=== PATIENT | male | born 1990 | race Caucasian/White ===

== ENCOUNTER 2023-04-06 20:57 | Emergency (ER) | payer MEDICAID, SELFPAY ==
[2023-04-06 20:59] VITALS: BP 139/81; PULSE 64; RESP 18; TEMP 37.2; O2SAT 97; BMI 33.4
--- NOTE | 2023-04-06 22:27 | ED.DENTAL ---
HPI - Dental/Oral General Chief complaint: Dental/Oral Stated complaint: tooth pain Time Seen by Provider: 04/06/23 22:03 Source: patient Mode of arrival: ambulatory Limitations: no limitations History of Present Illness HPI Narrative: Patient complaining of left lower molar tooth pain for last few months got worse in last few days patient has a broken tooth and multiple cavities has not seen a dentist no fever no chills pain gets worse with cold liquids Related Data Previous Rx's Medication Instructions Recorded amoxicillin 875 mg-potassium 1 tab PO BID #20 tabs 04/06/23 clavulanate 125 mg tablet hydrocodone 5 mg-acetaminophen 325 1 tab PO Q6H PRN pain #20 tabs 04/06/23 mg tablet Allergies Allergy/AdvReac Type Severity Reaction Status Date / Time No Known Allergies Allergy Verified 04/06/23 21:02 Review of Systems Review of Systems: Yes all other systems are reviewed and are negative [facility] Social History Social History Advance Directives: No Advance Directives Information Provided: No Physical Exam Vital Signs: Vital Signs: Last Vital Signs Temp 98.9 F 04/06/23 20:59 Pulse 64 04/06/23 20:59 Resp 18 04/06/23 20:59 BP 139/81 04/06/23 20:59 Pulse Ox 97 04/06/23 20:59 O2 Del Method Room Air 04/06/23 20:59 BMI result Body Mass Index 33.4 HEENT: Teeth image: 1. Broken tooth , pulp visible tender to touch no abscess or significant soft tissue swelling Medications Administered Discontinued Medications Generic Name Dose Route Start Last Admin Trade Name Alanq PRN Reason Stop Dose Admin Hydrocodone Bitart/Acetaminophen 1 tab 04/06/23 22:27 04/06/23 22:36 Hydrocodone Bit/Acetam 5/325 Tablet PO 04/06/23 22:28 1 tab ONCE ONE Administration Amoxicillin/Clavulanate Potassium 875 mg 04/06/23 22:27 04/06/23 22:36 Amoxicillin/Potassium Clav 875 Mg Tablet PO 04/06/23 22:28 875 mg ONCE ONE Administration Discharge Plan Discharge Clinical Impression: Dental caries Patient Disposition: Home, Self-Care Instructions: Toothache (ED) Additional Instructions: Take antibiotics and pain medication as prescribed Followup with dentist Prescriptions: New amoxicillin-pot clavulanate 875-125 mg tablet 1 tab PO BID Qty: 20 0RF hydrocodone-acetaminophen 5-325 mg tablet 1 tab PO Q6H PRN (Reason: pain) Qty: 20 0RF Rx Instructions: Partial Fill upon patient request. Interventions: ED Discharge Assessment Last Done: 04/06/23 22:38 Discharge Date/Time: 04/06/23 22:38
[2023-04-06] MEDS: HYDROcodone Bit/Acetam 5/325 TABLET 1 TAB PO (22:36)
[2023-04-06] MEDS: Amoxicillin/Potassium Clav 875 MG TABLET PO (22:36)
--- NOTE | 2023-04-06 22:38 | PC.NURSE ---
pt medicated per MAR
== END 2023-04-06 22:38 | disposition home or self-care (01) ==
PROVIDERS: Emergency Provider Internal Medicine
DX: K02.9 Dental caries, unspecified (principal)
CPT/HCPCS: 99283

== ENCOUNTER 2023-06-04 11:01 | Inpatient (IN) | payer MEDICAID, SELFPAY ==
[2023-06-04] VITALS (9 sets, daily range): BP systolic 100–149; BP diastolic 49–112; PULSE 74–94; RESP 12–26; TEMP 35.5–36.6; O2SAT 94–100; BMI 35.3; BMI 36.5
--- NOTE | ~2023-06-04 | XR_ITS ---
EXAMINATION: XR CHEST CLINICAL INFORMATION: Hypoxic with cough COMPARISON: None available. TECHNIQUE: 2 views of the chest were obtained. FINDINGS: Heart size normal. Diffuse airspace disease is present, left greater than right consistent with pneumonia. Process favors the upper lobes compared to the lower lobes which can be best appreciated on the lateral radiograph. No pleural effusions. XR/XR chest 2V IMPRESSION: Bilateral pneumonia, left greater than right.
--- NOTE | 2023-06-04 11:27 | ED.GENADULT ---
HPI - General Adult General Chief complaint: Overdose Stated complaint: OVERDOSE Time Seen by Provider: 06/04/23 11:10 Source: patient, EMS and RN notes reviewed Mode of arrival: EMS Limitations: no limitations History of Present Illness HPI narrative: Patient is a 32-year-old male presenting to the emergency department via EMS after being found unresponsive. Police administered 8mg of Narcan prior to arrival. Patient reports that he has had upper respiratory symptoms for the past several days, states his family members were sick with similar symptoms and he was the last to get sick. Reports using cocaine prior to arrival, states did not knowingly use any opiates. Denies fevers but reports chills. Denies chest pain or palpitations. Reports nausea but denies vomiting, diarrhea, or constipation. Denies abdominal pain. MD complaint: found unreponsive Onset (ago): minute(s) Associated symptoms: cough, nausea/vomiting and shortness of breath Treatments prior to arrival: other (Narcan from PD) Related Data Home Medications Medication Instructions Recorded Confirmed No Known Home Meds 06/04/23 06/04/23 Allergies Allergy/AdvReac Type Severity Reaction Status Date / Time No Known Allergies Allergy Verified 04/06/23 21:02 Review of Systems Review of Systems: As per HPI. Yes all other systems are reviewed and are negative Constitutional: Constitutional: Reports as per HPI [facility] Social History Social History Advance Directives: No Advance Directives Information Provided: No Physical Exam ED Vital Signs: Vital Signs - 24 hr 06/04/23 11:14 06/04/23 13:18 06/04/23 13:34 Temperature 96 F L Pulse Rate 87 79 Respiratory Rate 26 H 18 13 Blood Pressure 149/102 H 100/49 L Pulse Oximetry 94 94 Oxygen Delivery Method Non-Rebreather Mask Oxymask Oxygen Flow Rate 6 06/04/23 14:51 06/04/23 15:29 Temperature 97.7 F Pulse Rate 88 Respiratory Rate 14 15 Blood Pressure 118/78 Pulse Oximetry 97 Oxygen Delivery Method High Flow Nasal Cannula Oxygen Flow Rate BMI result Body Mass Index 35.3 Vital signs have been reviewed and appear to be correct. Blood pressure elevated. Heart rate normal. Respiratory rate tachypneic. Temperature low. Oxygen saturation hypoxic but improves with oxygenl. Const General: cooperative and no acute distress Nutritional Appearance: average body habitus Orientation/consciousness: oriented to person, oriented to place, oriented to time and patient oriented x3 Limitations: no limitations HENMT Head: Yes normocephalic and Yes atraumatic Ears: external ears normal General nose exam: Normal external nose present Face and sinus: Yes face symmetric Mouth: oropharynx normal and moist mucous membranes Throat: Yes uvula midline Eyes Pupils: Equal, round and reactive pupils present Neck Neck: Yes normal visual inspection and Yes supple Chest Chest palpation & inspection: normal inspection of the chest and normal palpation of entire chest wall Resp Effort & Inspection: Actively coughing Quality: wet, tachypneic and uses accessory muscles Auscultation: crackles bilateral throughout Cardio Rate: regular rate Rhythm: regular rhythm Heart sounds: S1 normal heart sound present and S2 normal heart sound present GI Palpation (GI): Soft to palpation and nontender Auscultation: normoactive bowel sounds General: Yes no CVA tenderness Back/Spine/Pelvis Back: no CVA tenderness Skin General skin exam: elasticity normal and turgor normal Neuro General: oriented to person, oriented to place, oriented to time, patient oriented x3, moves all extremities, no focal motor deficits and CN's II-XI intact bilaterally Cranial nerves: Yes Equal, round and reactive pupils present Cognition (Neuro): normal cognition Extrem General: Yes full ROM, Yes no pedal edema and Yes no calf tenderness Psych Mental Status: mental status grossly normal Affect: normal affect Thought process: Normal thought process present Medications Administered Discontinued Medications Generic Name Dose Route Start Last Admin Trade Name Freq PRN Reason Stop Dose Admin Piperacillin Sod/Tazobactam 50 mls @ 100 mls/hr 06/04/23 12:00 06/04/23 14:49 Sod 3.375 gm/ Sodium Chloride IV 06/04/23 12:29 100 mls/hr ONCE ONE Administration Sodium Chloride 2,886 mls @ 2,886 mls/hr 06/04/23 13:24 06/04/23 14:56 Ns 30 ml/kg infuse over 1 hr (2886 ml) 06/04/23 14:23 Infused IV Infusion .Q1H STA Ondansetron HCl 4 mg 06/04/23 11:40 06/04/23 11:44 Ondansetron Hcl 4 Mg/2 Ml Vial IVPUSH 06/04/23 11:41 4 mg ONCE ONE Administration Medical Decision Making Medical Decision Making [facility] Narrative: 11:20 Patient is a 32-year-old male presenting to the emergency department via EMS after being found unresponsive. On exam patient is awake, A+Ox3, afebrile, hypoxic on room air, mildly tachypneic, BP elevated, normal neurological exam without focal deficits, physical exam findings as above. Given reported symptoms and physical exam findings, initial differential includes opioid overdose, pneumonia, flu, COVID. Do not suspect sepsis at this time. Will obtain chest x-ray. 12:00 Chest x-ray positive for bilateral pneumonia, my interpretation is in agreement with the radiologist's interpretation. IV zosyn ordered. RT called to bedside as patient hypoxic on nasal cannula. Patient placed on oxymask by RT. Labs notable for leukocytosis, elevated LFTs. Flu and COVID swab negative. 1:24 Received call from labs for bands of 18. 30mg/kg fluids ordered. Cultures and lactic ordered as Zosyn not yet administered. [place] text to Dr. Malik for admission. Differential Diagnosis Differential Diagnoses: The differential diagnosis associated with the presentation includes As per MDM. Admission/Observation Consideration of admission/observation: Escalation of care including admission/observation considered Consult Healthcare Provider Management of the patient was discussed with: Hospitalist Lab Data [facility] Lab Attestation statement: I reviewed the patient's lab results. As per MDM. 06/04/23 12:34 06/04/23 12:34 Labs: Lab Results 06/04/23 06/04/23 06/04/23 Range/Units 11:43 12:34 13:07 WBC 21.6 H (4.8-10.8) X10*3/uL RBC 4.86 (4.60-5.80) X10*6/uL Hgb 14.9 (14.0-18.0) g/dl Hct 46.3 (42.0-52.0) % MCV 95.3 (80.0-98.0) fL MCH 30.7 (27.0-33.0) pg MCHC 32.2 (31.0-36.0) g/dl RDW 13.2 (11.0-16.0) % Plt Count 395 (160-400) X10*3/uL MPV 10.9 (9.4-12.4) fL Immature Gran % (Auto) Cancelled Neut % (Auto) Cancelled Lymph % (Auto) Cancelled [place] % (Auto) Cancelled Eos % (Auto) Cancelled Baso % (Auto) Cancelled Lymph # (Auto) Cancelled [place] # (Auto) Cancelled Eos # (Auto) Cancelled Baso # (Auto) Cancelled Abs Immat Gran (auto) Cancelled Absolute Neuts (auto) Cancelled Absolute Nucleated RBC 0.000 (0.0-0.012) X10*3/uL Nucleated RBC % (auto) 0.0 (0.0-0.2) /100WBC Neutrophils % (Manual) 57 (45-73) % Band Neutrophils % 18 H (3-5) % Lymphocytes % (Manual) 15 L (20-40) % Metamyelocytes % 4 % Myelocytes % 6 % Abs Neuts (Manual) 16.2 H (2.0-8.3) X10*3/uL Lymphocytes # (Manual) 3.2 (1.2-4.9) X10*3/uL Metamyelocytes # 0.9 X10*3/uL Myelocytes # 1.3 X10*/uL Toxic Vacuolation PRESENT Platelet Estimate NORMAL (NORMAL) Plt Morphology Comment NORMAL RBC Morphology NOTED [place] Cells 3+ (>5) /OIF Acanthocytes (Spur) 1+ (0-2) /OIF Sodium 135 (135-145) mmol/L Potassium 4.3 (3.3-5.1) mmol/L Chloride 100 (96-108) mmol/L Carbon Dioxide 17 L (22-29) mmol/L Anion Gap 22 H (12-20) BUN 14 (9-16) mg/dL Creatinine 1.50 H (0.5-1.4) mg/dL Estim Creat Clear Calc 74.6 Estimated GFR 54 Random Glucose 188 H (60-115) mg/dL Lactic Acid 5.4 H* (0.5-2.0) mmol/L Calcium 9.5 (8.4-10.2) mg/dL Total Bilirubin 0.3 (0.0-1.0) mg/dL AST 107 H (5-37) U/L ALT 86 H (0-40) U/L Alkaline Phosphatase 84 (39-117) U/L Total Protein 8.7 H (6.5-8.0) g/dL Albumin 4.7 (3.5-5.0) g/dL COVID-19 (DAILY) Negative (Negative) COVID-19 Clin Com See Note Influenza Type A ([place]) Negative (Negative) Influenza Type B ([place]) Negative (Negative) Influenza A & B Note See Note Independent Interpretation I performed an independent interpretation of an: Plain X-Ray Interpretation: Bilateral pneumonia Radiology Impression Discussion of test interpretation with radiology: I have reviewed the radiologist's reading. Radiologist Impression: XR/XR chest 2V IMPRESSION: Bilateral pneumonia, left greater than right. External Record Review External record reviewed: Inpatient record, Office record and Outpatient record Prescription Management I considered prescription management with: Antibiotic Discharge Plan Discharge Clinical Impression: Bilateral pneumonia Patient Disposition: Admitted As Inpatient
[2023-06-04] MEDS: ondansetron HCL 4 MG/2 ML VIAL IVPUSH (11:44)
--- NOTE | 2023-06-04 11:45 | PC.NURSE ---
patient removed non-rebreather d/t vomiting. oxygen dropped to 70's. medicated with zofran, placed back on non-rebreather at this time 94%.
[2023-06-04 12:07] LABS: IDNOW Serial# 9DB6401D; Influenza A Negative (Negative); Influenza B2 Negative (Negative)
[2023-06-04 12:08] LABS: COVID-19 Test Negative (Negative); IDNOW Serial# BCCEAD1C
[2023-06-04 12:43] LABS: Hematocrit 46.3 % (42.0-52.0); Hemoglobin 14.9 g/dl (14.0-18.0); Mean Corpuscular HGB Conc 32.2 g/dl (31.0-36.0); Mean Corpuscular Hemoglobin 30.7 pg (27.0-33.0); Mean Corpuscular Volume 95.3 fL (80.0-98.0); Mean Platelet Volume 10.9 fL (9.4-12.4); Platelet Count 395 X10*3/uL (160-400); Red Blood Count 4.86 X10*6/uL (4.60-5.80); Red Cell Distribution Width 13.2 % (11.0-16.0)
[2023-06-04 12:46] LABS: WBC ABN SCTR FOR CBC 1; White Blood Count 21.6 X10*3/uL (4.8-10.8)
--- NOTE | 2023-06-04 12:49 | HO.SUDE ---
Met with pt in ED6 who is here for OD to complete SUDE. Pt reports taking a small amount of cocaine nasally this morning before he went unconscious, stating he usually uses cocaine nasally a few times a week but that he does not have a history of opiates or any other recovery involvement. Pt informs he does not need any assistance with recovery and is being admitted. T/W reviewed harm reduction and overdose prevention with pt verbalizing understanding and having no other questions or concerns at this time.
[2023-06-04 12:58] LABS: Alanine Aminotransferase 86 U/L (0-40); Albumin Level 4.7 g/dL (3.5-5.0); Alkaline Phosphatase 84 U/L (39-117); Anion Gap 22 (12-20); Aspartate Amino Transferase 107 U/L (5-37); Bilirubin Total 0.3 mg/dL (0.0-1.0); Blood Urea Nitrogen 14 mg/dL (9-16); Calcium 9.5 mg/dL (8.4-10.2); Carbon Dioxide 17 mmol/L (22-29); Chloride 100 mmol/L (96-108); Creatinine Clr Calc Pharmacy 74.6; Estimated Glomerular Filt Rate 54; Glucose Random 188 mg/dL (60-115); Potassium 4.3 mmol/L (3.3-5.1); Sodium 135 mmol/L (135-145); Total Protein 8.7 g/dL (6.5-8.0)
[2023-06-04 13:20] LABS: Neutrophils Percent Manual 57 % (45-73)
[2023-06-04 13:22] LABS: Band Neutrophils Percent 18 % (3-5); Lymphocytes Absolute Manual 3.2 X10*3/uL (1.2-4.9); Lymphocytes Percent Manual 15 % (20-40); Metamyelocytes Absolute 0.9 X10*3/uL; Metamyelocytes Percent 4 %; Myelocytes Absolute 1.3 X10*/uL; Myelocytes Percent 6 %; Neutrophils Absolute Manual 16.2 X10*3/uL (2.0-8.3); RBC Morphology NOTED
[2023-06-04 13:23] LABS: Acanthocytes 1+ (0-2) /OIF; Burr Cells 3+ (>5) /OIF; Platelet Estimate NORMAL (NORMAL); Platelet Morphology Comment NORMAL; Toxic Vacuolation PRESENT
[2023-06-04] MEDS: SODIUM CHLORIDE 2886 ML IV (13:40)
--- NOTE | 2023-06-04 14:08 | PHA.MEDREC ---
Pharmacy Consult ? Medication Reconciliation Pharmacy has completed the medication reconciliation. pt claims he is not on any home medications
[2023-06-04 14:14] LABS: Lactic Acid 5.4 mmol/L (0.5-2.0)
[2023-06-04] MEDS: Piperacillin Sodium/Tazobactam 3.375 GM in 0.9 % Sodium Chloride 50 ML IV ×2 (14:49→21:25)
--- NOTE | 2023-06-04 15:00 | P.HPHOSP_ITS ---
History of Present Illness Date of Service: 06/04/23 Attending physician on admission: Paul Malik Chief Complaint: Cough, fatigue Pt is a 32-year-old male with a PMH significant for?cocaine use disorder not on home meds who presents to the ED after being found unresponsive at his mother's house. Patient states that he has been feeling depressed and overwhelmed lately as he is currently without a job and involved with a custody dispute with the maternal grandparents of his child, and been using cocaine 1-2 times per week. Today snorted cocaine and then passed out. Patient adamantly denies overdose was intentional, denies SI. Patient unclear of specifics of events surrounding ingestion. Police administered 8 mg of Narcan prior to arrival to the ED with good response. Patient denies IVDU or any significant history of heroin use, denies knowingly ingesting any heroin today. Patient also reports he has been experiencing URI-type symptoms for the past week: Sore throat, nasal congestion, hoarse voice, chills, and difficulty breathing. Denies any significant cough. No chest pain/pressure, palpitation. Had some nausea after arriving at the ED, but has since resolved. No vomiting. Denies abdominal pain. No headache, acute vision changes. In the ED the patient was afebrile, tachypneic to 26, with variable BP, satting at 94% on non-rebreather on on 15 L. In the ED pt was initially transitioned to OxyMask 8 L, then switched to 40% high-flow due to continued hypoxia. Labs were significant for leukocytosis of 21.6, bands 18%, creatinine 1.50, lactic acid 5.4, AST 107, ALT 86. Patient tested negative for COVID and influenza type a and B. CXR showed bilateral pneumonia with left greater than right. Pt was treated with ondansetron, IVF, and Zosyn. Pt will be admitted to the hospital for treatment and further evaluation of acute hypoxic respiratory failure in the setting of sepsis secondary to multifocal pneumonia. Review of Systems 2 Review of Systems: SOB, dyspnea Nasal congestion, hoarse voice, sore throat Nausea, Chills Denies chest pain/pressure, palpitations No abdominal pain PMFSH Social History Household Members: Family Housing: House Do you presently have visiting nurse or other home services: No Patient Tobacco Use Status: Current everyday Tobacco user Tobacco use type: Cigarette Smoked in Last 30 Days: Yes Patient Interested in Nicotine Replacement: Yes Patient Given Instructions on How to Stop Smoking: Yes Date Education Initiated: 06/04/23 Second Hand Smoke Exposure: Yes Use of substances other than those prescribed or required for medical reasons: Yes Substance Use Type: Crack/Cocaine Substance Use Frequency: Daily Last Used Substance: Just Prior to Admission Currently Displaying Signs/Symptoms of Drug Intoxication Withdrawal: No Any prior treatment program specific to substance use: No Have you been hit, kicked, punched, or otherwise hurt by someone within the past year? If so, by whom?: No Is there a partner from a previous relationship who is making you feel unsafe now?: No Are you made to feel afraid or neglected: No Advance Directives: No Advance Directives Information Provided: No Do you have thoughts of harming others: None Do you have a plan to hurt others: No Plan Recently lost weight without trying: Unsure Eating poorly because of decreased appetite: No service: No Meds Allergies Allergy/AdvReac Type Severity Reaction Status Date / Time No Known Allergies Allergy Verified 04/06/23 21:02 Home Medications Medication Instructions Recorded Confirmed Last Taken Type No Known Home Meds 06/04/23 06/04/23 Unknown History Physical Exam 2 Vital Signs and Narrative: Vital Signs: Last Vital Signs Temp 97.7 F 06/04/23 14:51 Pulse 88 06/04/23 14:51 Resp 14 06/04/23 14:51 BP 118/78 06/04/23 14:51 Pulse Ox 97 06/04/23 14:51 O2 Del Method High Flow Nasal C annula 06/04/23 14:51 O2 Flow Rate 6 06/04/23 13:18 Oxygen Flow Rate 15 06/04/23 11:14 BMI result Body Mass Index 35.3 General: AOx3, no acute distress Resp: CTA bilaterally, diminished at bases CVS: S1, S2, RRR GI: +BS, NT, no distention Skin: No rash Neuro: Cranial nerves II-XII grossly intact bilaterally. Motor grossly intact bilaterally Extremities: No edema Psych: Appropriate affect Results Labs 06/05/23 05:47 06/05/23 05:47 Labs: Laboratory Results - last 24 hr 06/04/23 06/04/23 06/04/23 11:43 12:34 13:07 MCV 95.3 MCH 30.7 MCHC 32.2 RDW 13.2 Plt Count 395 MPV 10.9 Immature Gran % (Auto) Cancelled Neut % (Auto) Cancelled Lymph % (Auto) Cancelled [place] % (Auto) Cancelled Eos % (Auto) Cancelled Baso % (Auto) Cancelled Lymph # (Auto) Cancelled [place] # (Auto) Cancelled Eos # (Auto) Cancelled Baso # (Auto) Cancelled Abs Immat Gran (auto) Cancelled Absolute Neuts (auto) Cancelled Absolute Nucleated RBC 0.000 Nucleated RBC % (auto) 0.0 Neutrophils % (Manual) 57 Band Neutrophils % 18 H Lymphocytes % (Manual) 15 L Metamyelocytes % 4 Myelocytes % 6 Abs Neuts (Manual) 16.2 H Lymphocytes # (Manual) 3.2 Metamyelocytes # 0.9 Myelocytes # 1.3 Toxic Vacuolation PRESENT Platelet Estimate NORMAL Plt Morphology Comment NORMAL RBC Morphology NOTED [place] Cells 3+ (>5) Acanthocytes (Spur) 1+ (0-2) Anion Gap 22 H Estim Creat Clear Calc 74.6 Estimated GFR 54 Random Glucose 188 H Lactic Acid 5.4 H* Calcium 9.5 Total Bilirubin 0.3 AST 107 H ALT 86 H Alkaline Phosphatase 84 Total Protein 8.7 H Albumin 4.7 COVID-19 (DAILY) Negative COVID-19 Clin Com See Note Influenza Type A ([place]) Negative Influenza Type B ([place]) Negative Influenza A & B Note See Note Imaging Radiologist's Impressions: Impressions Chest X-Ray 06/04/23 11:31 IMPRESSION: Bilateral pneumonia, left greater than right. Assessment and Plan (1) Bilateral pneumonia: Status: Acute Plan Pt is a 32-year-old male with a PMH significant for?cocaine use disorder not on home meds who presents to the ED after being found unresponsive at his mother's house. Patient states that he has been feeling depressed and overwhelmed lately as he is currently without a job and involved with a custody dispute with the maternal grandparents of his child, and been using cocaine 1-2 times per week. Today snorted cocaine and then passed out. Acute hypoxic respiratory in the setting of sepsis secondary to likely aspiration pneumonia Patient hypoxic in low 80s after being found unresponsive after snorting cocaine possibly laced with fentanyl/opioids Patient was given 8 mg Narcan by police to good effect Patient initially on non-rebreather then transitioned to OxyMask and then to high-flow CXR showing bilateral pneumonia with left greater than right Pt with URI-like symptoms x1 week Aspiration pneumonia versus community-acquired pneumonia Patient meets severe sepsis criteria: Pneumonia, tachypnea, leukocytosis, lactic acid 5.4 Patient received IVF sepsis bolus and started on broad-spectrum antibiotics in the ED Treat with Zosyn 3.375g q6, started 06/04/2023 Will also treat with Solu-Medrol for possible aspiration pneumonitis Titrate supplemental O2>92, wean as tolerated Aspiration precautions Follow blood cultures Monitor respiratory status Cocaine use disorder Addiction medicine consult Check tox screen [id number] Patient creatinine 1.50, baseline unknown Patient received IVF in the ED Follow BMP Lactic acidosis, resolved Lactic acid 5.4 time of presentation with repeat WNL at 1.3 after receiving fluids Nicotine dependence Current smoker of 1/2 pack daily NRT: patch Full Code Attending:?Dr. Malik DVT Prophylaxis: Lovenox Pt will require a hospitalization of at least two nights for treatment of?acute hypoxic respiratory failure in the setting of sepsis secondary to likely aspiration pneumonia. The patient be treated with IVF, IV antibiotics, and close monitoring. Quality Stroke Does the patient have a stroke diagnosis?: No VTE Prior VTE?: No VTE Risk Level:: Medical - moderate - high VTE Device Contraindication: Treatment Not Indicated VTE Drug Contraindication: N/A - Med Ordered
[2023-06-04 15:34] LABS: Reflex Lactate? Lactic Acid Added
--- NOTE | 2023-06-04 15:58 | PC.NURSE ---
delay in hanging antibiotics d/t complications with second set of blood cultures. okayed to hang antibiotics after first set
[2023-06-04 16:13] LABS: ~Lactic Acid-LAB USE ONLY 1.3 mmol/L (0.5-2.0)
[2023-06-04] MEDS: methylPREDNISolone Sod Succ 40 MG/ML VIAL IVPUSH (16:28)
[2023-06-04] MEDS: 0.9 % Sodium Chloride Flush 3 ML SYRINGE IVFLUSH ×2 (16:30→21:29)
[2023-06-04] MEDS: Enoxaparin Sodium 40 MG/0.4 ML SYRINGE SUBCUT (16:30)
--- NOTE | 2023-06-04 18:13 | PC.NURSE ---
patient remains on the high flow, resting quietly in room. awaiting new bed assignment to [facility]. eating dinner at this time
[2023-06-04 22:32] LABS: Amphetamine Screen Urine Not Detected (Not Detect); Barbiturates, Urine Not Detected (Not Detect); Benzodiazepines Screen Urine Not Detected (Not Detect); Cannabinoid Screen Urine POSITIVE (Not Detect); Cocaine Screen Urine POSITIVE (Not Detect); Fentanyl, urine POSITIVE (Not Detect); Opiate Screen Urine Not Detected (Not Detect); Phencyclidine Screen Urine POSITIVE (Not Detect)
[2023-06-05] VITALS (7 sets, daily range): BP systolic 109–129; BP diastolic 65–71; PULSE 78–88; RESP 18–20; TEMP 36.2–36.8; O2SAT 92–98
[2023-06-05] MEDS: methylPREDNISolone Sod Succ 40 MG/ML VIAL IVPUSH ×2 (03:09→16:14)
[2023-06-05] MEDS: Piperacillin Sodium/Tazobactam 3.375 GM in 0.9 % Sodium Chloride 50 ML IV ×2 (03:12→08:36)
[2023-06-05 06:49] LABS: Hematocrit 36.9 % (42.0-52.0); Hemoglobin 12.1 g/dl (14.0-18.0); Mean Corpuscular HGB Conc 32.8 g/dl (31.0-36.0); Mean Corpuscular Hemoglobin 30.6 pg (27.0-33.0); Mean Corpuscular Volume 93.2 fL (80.0-98.0); Mean Platelet Volume 11.9 fL (9.4-12.4); Platelet Count 336 X10*3/uL (160-400); Red Blood Count 3.96 X10*6/uL (4.60-5.80); Red Cell Distribution Width 13.3 % (11.0-16.0); White Blood Count 29.1 X10*3/uL (4.8-10.8)
[2023-06-05 06:57] LABS: Anion Gap 15 (12-20); Blood Urea Nitrogen 29 mg/dL (9-16); Calcium 8.2 mg/dL (8.4-10.2); Carbon Dioxide 23 mmol/L (22-29); Chloride 100 mmol/L (96-108); Creatinine Clr Calc Pharmacy 58.7; Estimated Glomerular Filt Rate 40; Glucose Random 128 mg/dL (60-115); Potassium 4.7 mmol/L (3.3-5.1); Sodium 133 mmol/L (135-145)
[2023-06-05 08:01] LABS: Magnesium 2.1 mg/dL (1.6-2.6); Phosphorus 3.5 mg/dL (2.7-4.5)
--- NOTE | 2023-06-05 08:25 | P.CONNP_ITS ---
History of Present Illness Reason for Consult Consult date: 06/05/23 Reason for consult: YUSUF Chief Complaint Chief complaint: Sepsis,hypoxia,d/t bilateral pneumonia History of Present Illness Narrative: Pt is a 32-year-old male with a h/o cocaine use disorder not on home meds who presents to the ED after being found unresponsive at his mother's house. Patient states that he has been feeling depressed and overwhelmed lately as he is currently without a job and involved with a custody dispute with the maternal grandparents of his child, and been using cocaine 1-2 times per week. Prior to admission,he snorted cocaine and then passed out. Patient adamantly denies overdose was intentional, denies SI. Patient unclear of specifics of events surrounding ingestion. Does not remeber how long he was on the floor.Police administered 8 mg of Narcan prior to arrival to the ED with good response. Patient denies IVDU or any significant history of heroin use, denies knowingly ingesting any heroin today. On admission, he had YUSUF. CPK was not available and I ordered earlier today , whic was only 333 Review of Systems Constitutional: Denies anorexia, Denies fever(s) and Denies weakness Eyes: Denies blurry vision Cardiovascular: Denies no additional cardiovascular complaints and Denies dyspnea Respiratory: Reports no additional respiratory complaints, Reports cough and Denies dyspnea Gastrointestinal: Denies melena and Denies diarrhea Genitourinary: Denies hematuria Musculoskeletal: Denies tingling Skin/Breast: Denies rash Reports Abnormal speech present, Denies focal weakness, Denies tingling, Denies tremor(s) and Denies weakness [facility] Social History Social History Household Members: Family Housing: House Do you presently have visiting nurse or other home services: No Patient Tobacco Use Status: Current everyday Tobacco user Tobacco use type: Cigarette Second Hand Smoke Exposure: Yes Substance Use Type: Crack/Cocaine service: No Meds Allergies Allergy/AdvReac Type Severity Reaction Status Date / Time No Known Allergies Allergy Verified 04/06/23 21:02 Active Medications: Current Medications Acetaminophen (Acetaminophen 325 Mg Tablet) 650 mg PO Q6H PRN PRN Reason: Pain, Mild (Pain Scale 1-3) Benzonatate (Benzonatate 100 Mg Capsule) 100 mg PO TID PRN PRN Reason: Cough Docusate Sodium (Docusate Sodium 100 Mg Capsule) 100 mg PO DAILY PRN PRN Reason: Constipation Enoxaparin Sodium (Enoxaparin Sodium 40 Mg/0.4 Ml Syringe) 30 mg SUBCUT Q24H [facility] Piperacillin Sod/Tazobactam (Sod 3.375 gm/ Sodium Chloride) 50 mls @ 100 mls/hr IV Q6H [facility] Last Infusion: 06/05/23 03:42 Dose: Infused Sodium Chloride (Ns) 1,000 mls @ 125 mls/hr IVCONT .Q8H [facility] Melatonin (Melatonin 3 Mg Tablet) 6 mg PO BEDTIME PRN PRN Reason: Insomnia Methylprednisolone Sodium Succinate (Methylprednisolone Sod Succ 40 Mg/Ml Vial) 40 mg IVPUSH Q12H [facility] Last Admin: 06/05/23 03:09 Dose: 40 mg Nicotine (Nicotine 14 Mg Patch.Td24) 14 mg TRANSDERMA DAILY [facility] Last Admin: 06/04/23 18:12 Dose: Not Given Ondansetron HCl (Ondansetron Hcl 4 Mg/2 Ml Vial) 4 mg IVPUSH Q8H PRN PRN Reason: Nausea and Vomiting Sodium Chloride (0.9 % Sodium Chloride Flush 3 Ml Syringe) 3 ml IVFLUSH QSHIFT [facility] Last Admin: 06/04/23 21:29 Dose: 3 ml Home Medications Medication Instructions Recorded Confirmed Last Taken Type No Known Home Meds 06/04/23 06/04/23 Unknown History Physical Exam Vital Signs: Last Vital Signs Temp 97.1 F 06/05/23 03:40 Pulse 88 06/05/23 03:40 Resp 20 06/05/23 04:14 BP 129/67 06/05/23 03:40 Pulse Ox 95 06/05/23 03:40 O2 Del Method High Flow Nasal Cannula 06/05/23 03:40 O2 Flow Rate 40 06/05/23 03:40 FiO2 30 06/05/23 03:40 Oxygen Flow Rate 15 06/04/23 11:14 BMI result Body Mass Index 36.5 Const General: comfortable; No acute distress Orientation/consciousness: patient oriented x3 Eyes General: appearance normal, both eyes and all related structures Visual Johnson: normal visual johnson by confrontation Neck Neck: Yes supple and Yes no JVD Resp Effort & Inspection: normal respiratory effort and respiratory effort not decreased Auscultation: rhonchi Cardio Palpation: no palpable S3 and no palpable S4 Heart sounds: no rubs GI Inspection: Yes normal to inspection Palpation (GI): Soft to palpation Percussion: Yes normal to percussion Auscultation: normal bowel sounds General: Yes no CVA tenderness Back/Spine/Pelvis Back: no CVA tenderness Skin General skin exam: no petechiae and no purpura Neuro General: patient oriented x3 and no focal motor deficits Speech: Abnormal speech present Extrem General: No clubbing and No edema Results Lab Results 06/05/23 05:47 06/05/23 05:47 Lab results: Chemistry 06/04/23 06/05/23 12:34 05:47 Sodium 135 133 L Potassium 4.3 4.7 Carbon Dioxide 17 L 23 BUN 14 29 H Creatinine 1.50 H 1.94 H Calcium 9.5 8.2 L D Phosphorus 3.5 Hematology 06/04/23 06/05/23 12:34 05:47 WBC 21.6 H 29.1 H Hgb 14.9 12.1 L Plt Count 395 336 Assessment and Plan (1) YUSUF (acute kidney injury): Status: Acute Plan YUSUF in a young man in a setting of drug abuse/Cocaine use DDX Probably has ATN AIN is a possibility GN needs to be ruled out. Obstruction is less likely based on clinical picture Other problems: Mild Hyponatremia Lactic acidosis Mild hypocalcemia Elevated total protein Anemia Suggest Check UA, Urine Pro: Cr Keep I > O IV Hydration with NS or LR Watch urine output Avoid nephrotoxins Repeat Chem 7( ordered) Follow creatinine; If not improvement, would obtain sonogram If he has significant proteinuria, I willproceed with further work up Procedures Date of Service Date of Service: 06/05/23
[2023-06-05] MEDS: 0.9 % Sodium Chloride 1,000 ML 125 ML IVCONT ×3 (08:31→19:36)
[2023-06-05] MEDS: 0.9 % Sodium Chloride Flush 3 ML SYRINGE IVFLUSH ×2 (08:35→16:14)
[2023-06-05] MEDS: Enoxaparin Sodium 40 MG/0.4 ML SYRINGE 30 MG SUBCUT (08:39)
[2023-06-05] MEDS: Nicotine 14 MG PATCH.TD24 TRANSDERMA (08:39)
--- NOTE | 2023-06-05 10:45 | MHC.CM.PN ---
PT REPORTS HE LIVES WITH HIS MOTHER, STEP-FATHER, LITTLE SISTER AND TWO NEPHEWS HE REPORTS BEING INDEPENDENT WITH CARE, HAVING NO DME AND NO SERVICES PT REPORTS HE DOES NOT HAVE A PCP, HE WAS EDUCATION ON THE PROCESS BASED ON HIS INSURANCE LIST OF LOCAL PCP'S ALSO PROVIDED PT DECLINES TO COMPLETE A HCP DCP: HOME NO SERVICES VIA FAMILY TRANSPORT
[2023-06-05] MEDS: Azithromycin 500 MG in 0.9 % Sodium Chloride 250 ML 125 MG IV (10:51)
[2023-06-05] MEDS: cefTRIAXone sodium 1 GM in 0.9 % Sodium Chloride 50 ML IV (10:52)
[2023-06-05 11:03] LABS: Creatinine Urine 72.59 mg/dL; Total Protein Urine Random 15 mg/dL (<12)
--- NOTE | 2023-06-05 11:27 | MHC.RECOVSUP ---
Addendum entered by Jeff Villagomez 06/05/23 17:00: followed up with pt and provided recovery resources and fentanyl test strips. Pt had no other questions or concerns at this time. Original Note: Met with pt in 486 to see how he is doing. Pt informs he is feeling good and is not feeling any withdrawals at this time aside from being a little itchy and some heartburn. Pt has no questions or concerns at this time.
[2023-06-05 11:41] LABS: EOS Counted 0 CELLS; EOS QC POS YES; EOS Stain Quality OK YES; WBC, Counted 100 CELLS
--- NOTE | 2023-06-05 12:40 | P.PNIM_ITS ---
Subjective Subjective Date of Service: 06/05/23 Interval History: feels slightly better weaning down O2 no fever or chills Cr increasing Review of Systems Review of Systems: Yes all other systems are reviewed and are negative Physical Exam 2 Vital Signs: Vital Signs: Last Vital Signs Temp 98.3 F 06/05/23 12:00 Pulse 88 06/05/23 12:00 Resp 20 06/05/23 12:00 BP 127/69 06/05/23 12:00 Pulse Ox 94 06/05/23 12:00 O2 Del Method Nasal Cannula 06/05/23 12:00 O2 Flow Rate 4 06/05/23 12:00 FiO2 30 06/05/23 03:40 Oxygen Flow Rate 15 06/04/23 11:14 BMI result Body Mass Index 36.5 Const: Other: Constitutional : Awake, interactive, not in distress Neck : Normal inspection, Supple Cardiovascular : RRR, no JVP, no lower extremity edema Respiratory : good bilateral air entry, basal fine crackles, scattered expiratory wheezes Gastrointestinal: soft, lax, Normal bowel sounds, Non tender Skin : Warm, Dry Neurological : Alert & oriented x3, No focal deficit Objective Data Active Medications Acetaminophen (Acetaminophen 325 Mg Tablet) 650 mg PO Q6H PRN PRN Reason: Pain, Mild (Pain Scale 1-3) Benzonatate (Benzonatate 100 Mg Capsule) 100 mg PO TID PRN PRN Reason: Cough Docusate Sodium (Docusate Sodium 100 Mg Capsule) 100 mg PO DAILY PRN PRN Reason: Constipation Enoxaparin Sodium (Enoxaparin Sodium 40 Mg/0.4 Ml Syringe) 30 mg SUBCUT Q24H [facility] Last Admin: 06/05/23 08:39 Dose: 30 mg Documented By: ALEXYS Sodium Chloride (Ns) 1,000 mls @ 125 mls/hr IVCONT .Q8H [facility] Last Admin: 06/05/23 08:31 Dose: 125 mls/hr Documented By: ALEXYS Ceftriaxone Sodium 1 gm/ (Sodium Chloride) 50 mls @ 100 mls/hr IV Q24H [facility] Last Infusion: 06/05/23 11:39 Dose: Infused Documented By: ALEXYS Azithromycin 500 mg/ Sodium (Chloride) 250 mls @ 125 mls/hr IV Q24H [facility] Last Admin: 06/05/23 10:51 Dose: 125 mls/hr Documented By: ALEXYS Melatonin (Melatonin 3 Mg Tablet) 6 mg PO BEDTIME PRN PRN Reason: Insomnia Methylprednisolone Sodium Succinate (Methylprednisolone Sod Succ 40 Mg/Ml Vial) 40 mg IVPUSH Q12H [facility] Last Admin: 06/05/23 03:09 Dose: 40 mg Documented By: ERIK Nicotine (Nicotine 14 Mg Patch.Td24) 14 mg TRANSDERMA DAILY [facility] Last Admin: 06/05/23 08:39 Dose: 14 mg Documented By: ALEXYS Ondansetron HCl (Ondansetron Hcl 4 Mg/2 Ml Vial) 4 mg IVPUSH Q8H PRN PRN Reason: Nausea and Vomiting Sodium Chloride (0.9 % Sodium Chloride Flush 3 Ml Syringe) 3 ml IVFLUSH QSHIFT [facility] Last Admin: 06/05/23 08:35 Dose: 3 ml Documented By: ALEXYS Labs 06/05/23 05:47 06/05/23 05:47 Labs: Laboratory Results - last 24 hr 06/04/23 06/04/23 06/04/23 12:34 13:07 15:52 MCV 95.3 MCH 30.7 MCHC 32.2 RDW 13.2 Plt Count 395 MPV 10.9 Immature Gran % (Auto) Cancelled Neut % (Auto) Cancelled Lymph % (Auto) Cancelled Turner % (Auto) Cancelled Eos % (Auto) Cancelled Baso % (Auto) Cancelled Lymph # (Auto) Cancelled Turner # (Auto) Cancelled Eos # (Auto) Cancelled Baso # (Auto) Cancelled Abs Immat Gran (auto) Cancelled Absolute Neuts (auto) Cancelled Absolute Nucleated RBC 0.000 Nucleated RBC % (auto) 0.0 Neutrophils % (Manual) 57 Band Neutrophils % 18 H Lymphocytes % (Manual) 15 L Metamyelocytes % 4 Myelocytes % 6 Abs Neuts (Manual) 16.2 H Lymphocytes # (Manual) 3.2 Metamyelocytes # 0.9 Myelocytes # 1.3 Toxic Vacuolation PRESENT Platelet Estimate NORMAL Plt Morphology Comment NORMAL RBC Morphology NOTED [place] Cells 3+ (>5) Acanthocytes (Spur) 1+ (0-2) Anion Gap 22 H Estim Creat Clear Calc 74.6 Estimated GFR 54 Random Glucose 188 H Lactic Acid 5.4 H* Lactic Acid F/U @ 2Hr 1.3 Calcium 9.5 Phosphorus Magnesium Total Bilirubin 0.3 AST 107 H ALT 86 H Alkaline Phosphatase 84 Total Creatine Kinase Total Protein 8.7 H Albumin 4.7 Urine Eosinophils % U Random Total Protein Ur Random Sodium Urine Creatinine Urine Opiates Screen Urine Fentanyl Screen Ur Barbiturates Screen Ur Phencyclidine Scrn Ur Amphetamines Screen U Benzodiazepines Scrn Urine Cocaine Screen U Marijuana (THC) Screen 06/04/23 06/04/23 06/05/23 22:00 Unknown 05:47 MCV 93.2 MCH 30.6 MCHC 32.8 RDW 13.3 Plt Count 336 MPV 11.9 Immature Gran % (Auto) Neut % (Auto) Lymph % (Auto) Turner % (Auto) Eos % (Auto) Baso % (Auto) Lymph # (Auto) Turner # (Auto) Eos # (Auto) Baso # (Auto) Abs Immat Gran (auto) Absolute Neuts (auto) Absolute Nucleated RBC 0.000 Nucleated RBC % (auto) 0.0 Neutrophils % (Manual) Band Neutrophils % Lymphocytes % (Manual) Metamyelocytes % Myelocytes % Abs Neuts (Manual) Lymphocytes # (Manual) Metamyelocytes # Myelocytes # Toxic Vacuolation Platelet Estimate Plt Morphology Comment RBC Morphology Cristi Cells Acanthocytes (Spur) Anion Gap 15 Estim Creat Clear Calc 58.7 Estimated GFR 40 Random Glucose 128 H Lactic Acid Lactic Acid F/U @ 2Hr Calcium 8.2 L D Phosphorus 3.5 Magnesium 2.1 Total Bilirubin AST ALT Alkaline Phosphatase Total Creatine Kinase 333 H Total Protein Albumin Urine Eosinophils % U Random Total Protein Ur Random Sodium Urine Creatinine Cancelled Urine Opiates Screen Not Detected Urine Fentanyl Screen POSITIVE H Ur Barbiturates Screen Not Detected Ur Phencyclidine Scrn POSITIVE H Ur Amphetamines Screen Not Detected U Benzodiazepines Scrn Not Detected Urine Cocaine Screen POSITIVE H U Marijuana (THC) Screen POSITIVE H 06/05/23 10:20 MCV MCH MCHC RDW Plt Count MPV Immature Gran % (Auto) Neut % (Auto) Lymph % (Auto) Turner % (Auto) Eos % (Auto) Baso % (Auto) Lymph # (Auto) Turner # (Auto) Eos # (Auto) Baso # (Auto) Abs Immat Gran (auto) Absolute Neuts (auto) Absolute Nucleated RBC Nucleated RBC % (auto) Neutrophils % (Manual) Band Neutrophils % Lymphocytes % (Manual) Metamyelocytes % Myelocytes % Abs Neuts (Manual) Lymphocytes # (Manual) Metamyelocytes # Myelocytes # Toxic Vacuolation Platelet Estimate Plt Morphology Comment RBC Morphology Cristi Cells Acanthocytes (Spur) Anion Gap Estim Creat Clear Calc Estimated GFR Random Glucose Lactic Acid Lactic Acid F/U @ 2Hr Calcium Phosphorus Magnesium Total Bilirubin AST ALT Alkaline Phosphatase Total Creatine Kinase Total Protein Albumin Urine Eosinophils % 0.0 U Random Total Protein 15 H Ur Random Sodium 54.0 Urine Creatinine 72.59 Urine Opiates Screen Urine Fentanyl Screen Ur Barbiturates Screen Ur Phencyclidine Scrn Ur Amphetamines Screen U Benzodiazepines Scrn Urine Cocaine Screen U Marijuana (THC) Screen Assessment and Plan (1) YUSUF (acute kidney injury): Status: Acute (2) Bilateral pneumonia: Status: Acute Plan Pt is a 32-year-old male with a PMH significant for?cocaine use disorder not on home meds who presents to the ED after being found unresponsive at his mother's house. Patient states that he has been feeling depressed and overwhelmed lately as he is currently without a job and involved with a custody dispute with the maternal grandparents of his child, and been using cocaine 1-2 times per week. Today snorted cocaine and then passed out. Acute hypoxic respiratory 2/2 sepsis from aspiration pneumonia improving CXR showing bilateral pneumonia with left greater than right severe sepsis criteria: Pneumonia, tachypnea, leukocytosis, lactic acid 5.4 Patient received IVF sepsis bolus and started on broad-spectrum antibiotics in the ED DC Zosyn Solu-Medrol for possible aspiration pneumonitis O2 wean as tolerated Aspiration precautions Follow blood cultures Monitor respiratory status Cocaine use disorder Addiction team consult, started on Methadone tox screen positive for multiple drugs YUSUF worsening Cr 1.94 urine studies IVF Follow BMP Lactic acidosis, resolved resolved Nicotine dependence Current smoker of 1/2 pack daily NRT: patch Full Code DVT Prophylaxis: Lovenox Pt will require a hospitalization overnight for treatment of?acute hypoxic respiratory failure in the setting of sepsis secondary to likely aspiration pneumonia. Quality Stroke Does the patient have a stroke diagnosis?: No VTE Prior VTE?: No VTE Risk Level:: Medical - moderate - high VTE Device Contraindication: Treatment Not Indicated VTE Drug Contraindication: N/A - Med Ordered
--- NOTE | 2023-06-05 15:58 | P.EN_ITS ---
Event Note Date of Service: 06/05/23 Event Note: Addiction note Patient seen by Recovery Support at time of admission and today. overdose prevention discussion and risk reduction discussion Denies any intentional (opioid use) Plan: * recovery product support engineer to follow up with fentatnyl test strips and rein force overdose prevention strategies Time Spent With Patient Time: Total time managing care of this patient today ____ minutes.
--- NOTE | 2023-06-05 15:58 | PM.EVENT ---
Event Note Date of Service: 06/05/23 Event Note: Addiction note Patient seen by Recovery Support at time of admission and today. overdose prevention discussion and risk reduction discussion Denies any intentional (opioid use) Plan: recovery technical support specialist to follow up with fentatnyl test strips and reinforce overdose prevention strategies Time Spent With Patient Time: Total time managing care of this patient today ____ minutes.
[2023-06-06] VITALS: BP 131/81; PULSE 77; RESP 20; TEMP 35.9; O2SAT 99
[2023-06-06] MEDS: 0.9 % Sodium Chloride 1,000 ML 125 ML IVCONT ×2 (03:40→10:55)
[2023-06-06] MEDS: methylPREDNISolone Sod Succ 40 MG/ML VIAL IVPUSH (03:40)
[2023-06-06 03:48] VITALS: BP 112/65; PULSE 76; RESP 20; TEMP 36.6; O2SAT 98
[2023-06-06] MEDS: Acetaminophen 325 MG TABLET 650 MG PO (03:51)
[2023-06-06 07:27] LABS: Hematocrit 33.9 % (42.0-52.0); Hemoglobin 11.2 g/dl (14.0-18.0); Mean Corpuscular Hemoglobin 30.5 pg (27.0-33.0); Mean Corpuscular Volume 92.4 fL (80.0-98.0); Platelet Count 316 X10*3/uL (160-400); Red Blood Count 3.67 X10*6/uL (4.60-5.80); Red Cell Distribution Width 13.7 % (11.0-16.0); White Blood Count 22.6 X10*3/uL (4.8-10.8)
[2023-06-06 07:54] VITALS: BP 123/79; PULSE 71; RESP 18; TEMP 36.6; O2SAT 96
[2023-06-06 07:54] LABS: Anion Gap 12 (12-20); Blood Urea Nitrogen 26 mg/dL (9-16); Calcium 8.4 mg/dL (8.4-10.2); Carbon Dioxide 22 mmol/L (22-29); Chloride 105 mmol/L (96-108); Creatinine Clr Calc Pharmacy 72.6; Estimated Glomerular Filt Rate 51; Glucose Random 134 mg/dL (60-115); Potassium 4.9 mmol/L (3.3-5.1); Sodium 134 mmol/L (135-145)
[2023-06-06] MEDS: Enoxaparin Sodium 40 MG/0.4 ML SYRINGE 30 MG SUBCUT (08:01)
[2023-06-06] MEDS: Nicotine 14 MG PATCH.TD24 TRANSDERMA (08:01)
[2023-06-06] MEDS: cefTRIAXone sodium 1 GM in 0.9 % Sodium Chloride 50 ML IV (09:58)
[2023-06-06] MEDS: Azithromycin 500 MG in 0.9 % Sodium Chloride 250 ML 125 MG IV (10:54)
--- NOTE | 2023-06-06 11:23 | MHC.RECOVRN ---
Met with pt in 486 to follow up, assess for opioid withdrawal and provide support. Pt sitting in bed, awake, alert, easily engages in conversation. Discussed fentanyl presence in cocaine, reinforced overdose prevention strategies. Pt denies hx opioid use. Denies opioid withdrawal symptoms, only reports heartburn. Pt denies other questions or concerns for t/w. Genoveva Titus APRN, aware.
[2023-06-06 12:00] VITALS: BP 125/62; PULSE 100; RESP 18; TEMP 36.8; O2SAT 96
--- NOTE | 2023-06-06 12:55 | P.DS_ITS ---
DS: Providers Provider Date of Service: 06/06/23 Date of admission: 06/04/23 15:44 Primary care physician: [facility] Consults: 06/04/23 16:34 Addiction Medicine Routine Consulting Provider: Addiction Covering Reason for consultation: Cocaine use disorder, OD'd earlier today 06/05/23 07:37 Consult to Nephrology Routine Consulting Provider: Jah Mello Reason for consultation: Acute kidney injury DS: Diagnosis Discharge Diagnosis (1) YUSUF (acute kidney injury): Status: Acute (2) Bilateral pneumonia: Status: Acute (3) Drug abuse: Status: Acute (4) Lactic acidosis: Status: Acute (5) Smoking: Status: Acute (6) Sepsis: Status: Acute DS: Summary Hospital Course Hospital Course: Admission note HPI Pt is a 32-year-old male with a PMH significant for?cocaine use disorder not on home meds who presents to the ED after being found unresponsive at his mother's house. Patient states that he has been feeling depressed and overwhelmed lately as he is currently without a job and involved with a custody dispute with the maternal grandparents of his child, and been using cocaine 1-2 times per week. Today snorted cocaine and then passed out. Patient adamantly denies overdose was intentional, denies SI. Patient unclear of specifics of events surrounding ingestion. Police administered 8 mg of Narcan prior to arrival to the ED with good response. Patient denies IVDU or any significant history of heroin use, denies knowingly ingesting any heroin today. Patient also reports he has been experiencing URI-type symptoms for the past week: Sore throat, nasal congestion, hoarse voice, chills, and difficulty breathing. Denies any significant cough. No chest pain/pressure, palpitation. Had some nausea after arriving at the ED, but has since resolved. No vomiting. Denies abdominal pain. No headache, acute vision changes. In the ED the patient was afebrile, tachypneic to 26, with variable BP, satting at 94% on non-rebreather on on 15 L. In the ED pt was initially transitioned to OxyMask 8 L, then switched to 40% high-flow due to continued hypoxia. Labs were significant for leukocytosis of 21.6, bands 18%, creatinine 1.50, lactic acid 5.4, AST 107, ALT 86. Patient tested negative for COVID and influenza type a and B. CXR showed bilateral pneumonia with left greater than right. Pt was treated with ondansetron, IVF, and Zosyn. Pt will be admitted to the hospital for treatment and further evaluation of acute hypoxic respiratory failure in the setting of sepsis secondary to multifocal pneumonia. Hospital course # Acute hypoxic respiratory 2/2 sepsis from aspiration pneumonia\pneumonitis. as CXR showing bilateral pneumonia with left greater than right. Patient received IVF sepsis bolus and started on broad-spectrum antibiotics in the ED. Started on IV antibiotics of Zosyn along with Solu-Medrol for possible aspiration pneumonitis. He developed itching so Abx were changed to Azitrhomycin and Ceftin. He was weaned off Oxygen as blood cultures remained negative during hospital stay. # Cocaine use disorder Addiction team consult for tox screen positive for multiple drugs who recom mended outpatient resources. # YUSUF Presented with Cr of 1.5. worsened to 1.94 before improving back to 1.5. no clear baseline as he was evaluated by inside barrel lathe operator who recommended to repeat the labs and follow as outpatient. # Nicotine dependence Current smoker of 1/2 pack daily. Advised to quit and prescribed NRT. Continue Azithromycin and Ceftin for 5 more days Continue Prednisone for 3 more days Nicotine patches , quit smoking Avoid drugs and follow with outpatient resources repeat blood work next week and follow with dr Mello office. Time Attestation Discharge coordination time: Greater than 30 minutes Quality: Safe Use of Opioids Does Pt have an Active Cancer Diagnosis on the Problem List?: No Quality: Stroke Does the patient have a stroke diagnosis?: No Physical Exam Vital Signs: Vital Signs: Last Vital Signs Temp 98.2 F 06/06/23 12:00 Pulse 100 06/06/23 12:00 Resp 18 06/06/23 12:00 BP 125/62 06/06/23 12:00 Pulse Ox 96 06/06/23 12:00 O2 Del Method Room Air 06/06/23 12:00 O2 Flow Rate 4 06/05/23 16:00 FiO2 30 06/05/23 03:40 Oxygen Flow Rate 15 06/04/23 11:14 BMI result Body Mass Index 36.5 Const: Other: Constitutional : Awake, interactive, not in distress Neck : Normal inspection, Supple Cardiovascular : RRR, no JVP, no lower extremity edema Respiratory : good bilateral air entry, basal fine crackles, no wheezes Gastrointestinal: soft, lax, Normal bowel sounds, Non tender Skin : Warm, Dry Neurological : Alert & oriented x3, No focal deficit DS: Data Data Completed and Pending Labs on day of discharge: Laboratory Results - last 24 hr 06/06/23 06/06/23 06/06/23 06:50 06:50 06:50 WBC Cancelled 22.6 H RBC Cancelled 3.67 L Hgb Cancelled Hct MCV MCH MCHC RDW Plt Count MPV Absolute Nucleated RBC Nucleated RBC % (auto) Sodium Potassium Chloride Carbon Dioxide Anion Gap BUN Creatinine Estim Creat Clear Calc Estimated GFR Random Glucose Calcium 06/06/23 06/06/23 06/06/23 06:50 06:50 06:50 WBC RBC Hgb 11.2 L Hct Cancelled 33.9 L MCV Cancelled 92.4 MCH Cancelled MCHC RDW Plt Count MPV Absolute Nucleated RBC Nucleated RBC % (auto) Sodium Potassium Chloride Carbon Dioxide Anion Gap BUN Creatinine Estim Creat Clear Calc Estimated GFR Random Glucose Calcium 06/06/23 06/06/23 06/06/23 06:50 06:50 06:50 WBC RBC Hgb Hct MCV MCH 30.5 MCHC Cancelled 33.0 RDW Cancelled 13.7 Plt Count Cancelled MPV Absolute Nucleated RBC Nucleated RBC % (auto) Sodium Potassium Chloride Carbon Dioxide Anion Gap BUN Creatinine Estim Creat Clear Calc Estimated GFR Random Glucose Calcium 06/06/23 06/06/23 06/06/23 06:50 06:50 06:50 WBC RBC Hgb Hct MCV MCH MCHC RDW Plt Count 316 MPV Cancelled 12.0 Absolute Nucleated RBC Cancelled 0.000 Nucleated RBC % (auto) Cancelled Sodium Potassium Chloride Carbon Dioxide Anion Gap BUN Creatinine Estim Creat Clear Calc Estimated GFR Random Glucose Calcium 06/06/23 06/06/23 06/06/23 06:50 06:50 06:50 WBC RBC Hgb Hct MCV MCH MCHC RDW Plt Count MPV Absolute Nucleated RBC Nucleated RBC % (auto) 0.0 Sodium Cancelled 134 L Potassium Cancelled 4.9 Chloride Cancelled Carbon Dioxide Anion Gap BUN Creatinine Estim Creat Clear Calc Estimated GFR Random Glucose Calcium 06/06/23 06/06/23 06/06/23 06:50 06:50 06:50 WBC RBC Hgb Hct MCV MCH MCHC RDW Plt Count MPV Absolute Nucleated RBC Nucleated RBC % (auto) Sodium Potassium Chloride 105 Carbon Dioxide Cancelled 22 Anion Gap Cancelled 12 BUN Cancelled Creatinine Estim Creat Clear Calc Estimated GFR Random Glucose Calcium 06/06/23 06/06/23 06/06/23 06:50 06:50 06:50 WBC RBC Hgb Hct MCV MCH MCHC RDW Plt Count MPV Absolute Nucleated RBC Nucleated RBC % (auto) Sodium Potassium Chloride Carbon Dioxide Anion Gap BUN 26 H Creatinine Cancelled 1.57 H Estim Creat Clear Calc Cancelled 72.6 Estimated GFR Cancelled Random Glucose Calcium 06/06/23 06/06/23 06/06/23 06:50 06:50 06:50 WBC RBC Hgb Hct MCV MCH MCHC RDW Plt Count MPV Absolute Nucleated RBC Nucleated RBC % (auto) Sodium Potassium Chloride Carbon Dioxide Anion Gap BUN Creatinine Estim Creat Clear Calc Estimated GFR 51 Random Glucose Cancelled 134 H Calcium Cancelled 8.4 Preliminary micro results at discharge 06/04/23 13:02 Blood Culture - Preliminary Blood - Venous No growth after 24 hours. 06/04/23 13:02 Blood Culture - Preliminary Blood - Venous No growth after 24 hours. Imaging Chest x-ray: Radiologist's impression: ITS Impressions Chest X-Ray 06/04/23 11:31 IMPRESSION: Bilateral pneumonia, left greater than right. Discharge Plan Discharge Anticipated Discharge Date/Time: 06/06/23 12:38 Patient Disposition: Home, Self-Care Discharge Diagnosis: Pneumonia Acute kidney injury Referrals: [place] [Physician] - 1 Week Discharge Medications: New azithromycin 500 mg tablet 500 mg PO DAILY 5 Days Qty: 5 0RF cefuroxime axetil 500 mg tablet 500 mg PO BID Qty: 10 0RF nicotine 14 mg/24 hr Patch 24 Hour 14 mg transdermal DAILY Qty: 30 0RF benzonatate 100 mg Capsule 100 mg PO TID PRN (Reason: Cough) Qty: 21 0RF prednisone 20 mg tablet 20 mg PO DAILY Qty: 6 0RF Discharge Orders: Discharge Order (Routine); Ordered 06/06/23 Ordered By: Paul Malik Diet: Advance to usual diet Activity on Discharge: As tolerated Stand Alone Forms: Patient Portal Discharge page Other Ambulatory Orders: Basic Metabolic Panel (Routine) Timeframe: 5 Days Facility: [facility] - Location: Laboratory Ordered By: Paul Malik Care Plan Goals: Read below Health Concerns: Read below Plan of Treatment: Read below Assessment: You were treated for lung infection and kidney injury as you recieved IV antibiotics and evaluated by kidney specialist. Continue Azithromycin and Ceftin for 5 more days Continue Prednisone for 3 more days Nicotine patches , quit smoking Avoid drugs and follow with outpatient resources repeat blood work next week and follow with dr Mello office. Discharge Date/Time: 06/06/23 15:00
[2023-06-06] MEDS: Calcium Carbonate 750 MG TAB.CHEW 1500 MG PO (13:04)
--- NOTE | 2023-06-09 08:00 | P.CDIM_ITS ---
PROVIDER RESPONSE TEXT: To clarify, the appropriate diagnosis supported by the clinical indicators: Acute QUERY TEXT: PHYSICIAN'S DOCUMENTATION REQUEST Date of Query: 06/08/2023 10:22 AM EST Patient Name: Dain Baez Admit Date: 06/04/2023 Dear Paul Malik, RETROSPECTIVE QUERY A review of the medical record indicates additional documentation may be needed. Please review below and update the documentation accordingly. Clinical Indicators: PN: Assessment and plan - Lactic acidosis, resolved Lactic acidosis 5.4 time of presentation with repeat WNL at 1.3 after receiving fluids. Clarify which of the following accurately represents the acuity of the Lactic acidosis: Possible options might include: Acute Acute on chronic Other (explain)Clinically unable to determine (explain)Thank you, Leticia Lipscomb, CCS, CDIS Use of terms such as suspected, likely, concern for, or probable (associated with a specific diagnosi s that is being evaluated, monitored, or treated as if it exists) are acceptable and can be coded in the inpatient se tting, when documented at the time of discharge. Please use your independent medical judgment in providing your response. THIS QUERY IS PART OF THE PERMANENT MEDICAL RECORD
--- NOTE | 2023-06-09 08:00 | P.CDIM_ITS ---
PROVIDER RESPONSE TEXT: To clarify, the appropriate diagnosis supported by the clinical indicators: Obesity Due to excess calories QUERY TEXT: PHYSICIAN'S DOCUMENTATION REQUEST Date of Query: 06/08/2023 10:24 AM EST Patient Name: Dain Baez Admit Date: 06/04/2023 Dear Paul Malik, A review of the medical record indicates additional documentation may be needed. Please review below and update the documentation accordingly. Clinical Indicators: Nursing notes Height and Weight BMI 36.5 Class II obese 5ft 5in 99.5kg If possible, please provide an associated diagnosis related to the abnormal BMI, such as: Overweight Obesity Due to excess calories Obesity Due to other cause Specify the other cause Other (explain)Clinically unable to determine (explain)Thank you, Leticia Lipscomb, CCS, CDIS Use of terms such as suspected, likely, concern for, or probable (associated with a specific diagnosi s that is being evaluated, monitored, or treated as if it exists) are acceptable and can be coded in the inpatient se tting, when documented at the time of discharge. Please use your independent medical judgment in providing your response. THIS QUERY IS PART OF THE PERMANENT MEDICAL RECORD
== END 2023-06-06 15:00 | disposition home or self-care (01) | DRG 720 ==
LOC: HO.ED 13:53 → HO.EDOVER 15:56 → HO.S3 16:37 → HO.IMC 18:22
PROVIDERS: Internal Medicine Hypertension Specialist; Registered Nurse Emergency; Admitting Provider Student in an Organized Health Care Education/Training Program; Emergency Provider Emergency Medicine; PCP Student in an Organized Health Care Education/Training Program; Visit Provider Student in an Organized Health Care Education/Training Program
DX: A41.9 Sepsis, unspecified organism (principal); J96.01 Acute respiratory failure with hypoxia; J69.0 Pneumonitis due to inhalation of food and vomit; N17.0 Acute kidney failure with tubular necrosis; E87.21 Acute metabolic acidosis; E66.09 Other obesity due to excess calories; D64.9 Anemia, unspecified; T50.911A Poisoning by multiple unspecified drugs, medicaments and biological substances, accidental (unintentional), initial encounter; E87.1 Hypo-osmolality and hyponatremia; E83.51 Hypocalcemia; F14.90 Cocaine use, unspecified, uncomplicated; F17.210 Nicotine dependence, cigarettes, uncomplicated; Z68.36 Body mass index [BMI] 36.0-36.9, adult; Z71.6 Tobacco abuse counseling; Z20.822 Contact with and (suspected) exposure to COVID-19; Z79.899 Other long term (current) drug therapy
CPT/HCPCS: 36415; 71046; 80048; 80053; 80307; 82550; 82570; 83605; 83735; 84100; 84156; 84300; 85007; 85027; 85999; 87040; 87502; 87635; 99285; J0456; J0696; J1650; J2405; J2543; J2920

== ENCOUNTER → 2023-06-04 15:44 | Outpatient (BNV) | payer MEDICAID, SELFPAY | PROVIDERS: Admitting Provider Student in an Organized Health Care Education/Training Program; Emergency Provider Emergency Medicine; Visit Provider Student in an Organized Health Care Education/Training Program | DX: N17.9 Acute kidney failure, unspecified (principal); A41.9 Sepsis, unspecified organism; F19.10 Other psychoactive substance abuse, uncomplicated; J18.9 Pneumonia, unspecified organism; E87.20 Acidosis, unspecified; F17.200 Nicotine dependence, unspecified, uncomplicated | CPT/HCPCS: 99223; 99233; 99239 ==

== ENCOUNTER → 2023-06-04 15:44 | Outpatient (BNV) | payer MEDICAID, SELFPAY | PROVIDERS: Admitting Provider Student in an Organized Health Care Education/Training Program; Emergency Provider Emergency Medicine; PCP Student in an Organized Health Care Education/Training Program; Visit Provider Internal Medicine Hypertension Specialist | DX: N17.9 Acute kidney failure, unspecified (principal) | CPT/HCPCS: 99222 ==

== ENCOUNTER 2023-06-19 10:07 | Outpatient (REF) | payer MEDICAID, SELFPAY ==
[2023-06-19 14:32] LABS: MANUAL DIFF FLAG NO
[2023-06-19 14:39] LABS: Basophils Absolute Auto 0.1 X10*3/uL (0.0-0.2); Basophils Percent Auto 0.7 % (0-2); Eosinophils Absolute Auto 0.1 X10*3/uL (0.0-0.4); Eosinophils Percent Auto 1.4 % (0-4); Hematocrit 41.7 % (42.0-52.0); Hemoglobin 13.4 g/dl (14.0-18.0); Imm Gran Abs Auto 0.14 X10*3/uL (0.00-0.03); Imm Gran Pct Auto 1.5 % (0.0-0.4); Lymphocytes Absolute Auto 3.1 X10*3/uL (1.2-4.9); Lymphocytes Percent Auto 32.4 % (20-40); Mean Corpuscular HGB Conc 32.1 g/dl (31.0-36.0); Mean Corpuscular Hemoglobin 30.2 pg (27.0-33.0); Mean Corpuscular Volume 93.9 fL (80.0-98.0); Mean Platelet Volume 11.8 fL (9.4-12.4); Monocytes Absolute Auto 0.7 X10*3/uL (0.1-1.2); Monocytes Percent Auto 7.2 % (2-11); Neutrophils Absolute Auto 5.4 x10*3/uL (2.0-8.3); Neutrophils Percent Auto 56.8 % (45-73); Platelet Count 380 X10*3/uL (160-400); Red Blood Count 4.44 X10*6/uL (4.60-5.80); Red Cell Distribution Width 13.6 % (11.0-16.0); White Blood Count 9.5 X10*3/uL (4.8-10.8)
[2023-06-19 14:45] LABS: Appearance Urine Clear; Color Urine Yellow; Glucose Urine UA Negative (Negative); Leukocyte Esterase Urine Negative (Negative); Nitrite Urine Negative (Negative); PH 5.5 (5.0-9.0); Specific Gravity - Urine 1.025 (1.005-1.025); Urine Blood Negative (Negative); Urine Ketones Negative (Negative); Urine Protein Negative (Neg-Trace)
[2023-06-19 14:50] LABS: Bacteria Urine None Seen (None Seen); Hyaline Casts Urine 0-2 /LPF (0-2); RBC Urine 0-2 /HPF (0-2); Squamous Epithelial Cell Urine 0-2 /HPF (0-2); WBC Urine 0-5 /HPF (0-5)
[2023-06-19 15:02] LABS: Anion Gap 13 (12-20); Blood Urea Nitrogen 17 mg/dL (9-16); Calcium 9.3 mg/dL (8.4-10.2); Carbon Dioxide 23 mmol/L (22-29); Chloride 108 mmol/L (96-108); Estimated Glomerular Filt Rate > 60; Glucose Random 117 mg/dL (60-115); Potassium 3.5 mmol/L (3.3-5.1); Sodium 140 mmol/L (135-145)
== END 2023-06-19 10:08 | disposition home or self-care (01) ==
LOC: HO.CHCLDS 10:07
PROVIDERS: Visit Provider Pediatrics
DX: N17.9 Acute kidney failure, unspecified (principal); F41.9 Anxiety disorder, unspecified
CPT/HCPCS: 36415; 80048; 81001; 85025

== ENCOUNTER 2023-07-18 07:16 | Emergency (ER) | payer MEDICAID, SELFPAY ==
--- NOTE | ~2023-07-18 | XR_ITS ---
EXAMINATION: XR CHEST CLINICAL INFORMATION: Fatigue. Recent pneumonia. COMPARISON: Chest x-ray June 04, 2023 TECHNIQUE: 2 views of the chest were obtained. FINDINGS: Cardiac silhouette is normal in size. The lungs are adequately aerated. Complete interval resolution of previously present diffuse bilateral airspace disease. There is no lobar consolidation. No pleural effusion or pneumothorax. No gross osseous abnormality. XR/XR chest 2V IMPRESSION: Complete interval resolution of previously present diffuse bilateral airspace disease.
[2023-07-18 07:27] VITALS: BP 141/88; PULSE 90; RESP 18; TEMP 36.7; O2SAT 97; BMI 34.3
--- NOTE | 2023-07-18 07:35 | ED.GENADULT ---
HPI - General Adult General Chief complaint: General Medical Stated complaint: ETOH? Time Seen by Provider: 07/18/23 07:35 History of Present Illness HPI narrative: The patient is a 33-year-old male who was recently hospitalized about 6 weeks ago. He was admitted on June 04 and discharged on June 06. At that time he had overdosed on cocaine and subsequently was found to have bilateral pneumonia and some mild worsening renal function. He denied that the overdose have been intentional. His pneumonia was felt to be an aspiration pneumonia. While in the hospital his creatinine worsened from 1.5 on admission to 1.94 in the hospital. This improved with hydration. He was discharged on azithromycin and cefuroxime as well as a nicotine patch and a short course of prednisone. The patient was brought to the emergency room this morning by his sister. The patient has been at home. He has been complaining of bilateral flank pain which she says is ?kidney pain. ? He has also continued to use drugs including cocaine and Fransisco dust. His sister is concerned that he needs help for his drug problems. He denies nausea and vomiting. He denies hematuria. Related Data Previous Rx's Medication Instructions Recorded azithromycin 500 mg tablet 500 mg PO DAILY 5 days #5 tabs 06/06/23 benzonatate 100 mg capsule 100 mg PO TID PRN Cough #21 caps 06/06/23 cefuroxime axetil 500 mg tablet 500 mg PO BID #10 tabs 06/06/23 nicotine 14 mg/24 hr daily 14 mg transdermal DAILY #30 ea 06/06/23 transdermal patch prednisone 20 mg tablet 20 mg PO DAILY #6 tabs 06/06/23 Allergies Allergy/AdvReac Type Severity Reaction Status Date / Time No Known Allergies Allergy Verified 07/18/23 07:27 Review of Systems Review of Systems: Yes all other systems are reviewed and are negative [facility] Social History Social History Household Members: Family Housing: House Do you presently have visiting nurse or other home services: No Patient Tobacco Use Status: Current everyday Tobacco user Tobacco use type: Cigarette Second Hand Smoke Exposure: Yes Substance Use Type: Crack/Cocaine Advance Directives: No service: No Physical Exam ED Vital Signs: Vital Signs - 24 hr 07/18/23 07:27 07/18/23 11:51 07/18/23 14:27 Temperature 98.1 F Pulse Rate 90 98 80 Respiratory Rate 18 18 19 Blood Pressure 141/88 H 122/76 105/58 L Pulse Oximetry 97 98 98 Oxygen Delivery Method Room Air 07/18/23 14:29 07/18/23 17:13 Temperature Pulse Rate 80 92 Respiratory Rate 18 18 Blood Pressure 105/58 L 134/78 Pulse Oximetry 96 99 Oxygen Delivery Method Room Air Room Air BMI result Body Mass Index 34.3 Const Other: The patient is awake and alert. He did not appear in distress. He was very laconic,, however. He has had very little. His sister did most of the talking. HENMT Other: Patient is symmetrical. Tongue is midline. Mucous membranes moist. Neck Other: No adenopathy. Neck is supple. Resp Other: No increased work of breathing. Breath sounds seem fairly clear. Cardio Other: The patient has a regular rate and rhythm without murmur GI Other: The abdomen is soft and nontender Skin Other: The patient is heavily tattooed. Otherwise the skin is dry and unremarkable. Neuro Other: Patient is awake and alert. No facial asymmetry. Speech was clear. Moving his extremities symmetrically. Extrem Other: No peripheral edema Medications Administered Discontinued Medications Generic Name Dose Route Start Last Admin Trade Name Freq PRN Reason Stop Dose Admin Acetaminophen 975 mg 07/18/23 09:01 07/18/23 09:35 Acetaminophen 325 Mg Tablet PO 07/18/23 09:02 975 mg ONCE ONE Administration Droperidol 2.5 mg 07/18/23 09:23 07/18/23 09:35 Droperidol 5 Mg/2 Ml Vial IVPUSH 07/18/23 09:24 2.5 mg ONCE ONE Administration Droperidol 2.5 mg 07/18/23 09:54 07/18/23 09:59 Droperidol 5 Mg/2 Ml Vial IVPUSH 07/18/23 09:55 2.5 mg ONCE ONE Administration Sodium Chloride 1,000 mls @ 999 mls/hr 07/18/23 07:45 07/18/23 09:50 Ns IV 07/18/23 08:45 Infused .Q1H1M LISA Infusion Sodium Chloride 1,000 mls @ 999 mls/hr 07/18/23 09:15 07/18/23 13:04 Ns IV 07/18/23 10:15 Infused .Q1H1M LISA Infusion Ketorolac Tromethamine 10 mg 07/18/23 09:02 07/18/23 09:34 Ketorolac Tromethamine 15 Mg/Ml Vial IVPUSH 07/18/23 09:03 10 mg ONCE ONE Administration Lorazepam 2 mg 07/18/23 09:54 07/18/23 09:58 Lorazepam 2 Mg/Ml Vial IVPUSH 07/18/23 09:55 2 mg ONCE ONE Administration Medical Decision Making Medical Decision Making [facility] Narrative: The patient is a 33-year-old male who was brought to the hospital by his sister. The patient has a problem with substance use problems. He was hospitalized about a month ago following a cocaine overdose in which she had some kidney injury. He also had bilateral pneumonia presumably aspiration pneumonia. Today the patient was initially complaining of bilateral flank pain after having used what he called Fransisco dust last night around midnight. Patient seemed to have a very withdrawn demeanor initially but seemed cooperative. After my initial evaluation however the patient became acutely agitated and behaved in extremely bizarre manner which I think was probably a manifestation of his Fransisco dust use. His behavior was bizarre but not violent. He was given IV droperidol and IV lorazepam after which he became much calmer and fell asleep for several hours. He was given IV fluids. His labs are unremarkable. Ultimately he awoke following the sedative medications and was seen by our recovery care team. He denies suicidality or any plans to harm himself. He agrees to want to get help with his substance use problems and he is agreeing to follow up as an outpatient on Thursday with a comprehensive care plan. He was given the phone number and the address for the office for this service. He looked well enough for discharge. Lab Data 07/18/23 07:58 07/18/23 07:58 Labs: Lab Results 07/18/23 Range/Units 07:58 WBC 12.6 H (4.8-10.8) X10*3/uL RBC 4.65 (4.60-5.80) X10*6/uL Hgb 14.1 (14.0-18.0) g/dl Hct 41.9 L (42.0-52.0) % MCV 90.1 (80.0-98.0) fL MCH 30.3 (27.0-33.0) pg MCHC 33.7 (31.0-36.0) g/dl RDW 12.7 (11.0-16.0) % Plt Count 316 (160-400) X10*3/uL MPV 11.0 (9.4-12.4) fL Immature Gran % (Auto) 0.6 H (0.0-0.4) % Neut % (Auto) 69.7 (45-73) % Lymph % (Auto) 20.3 (20-40) % Clark % (Auto) 8.8 (2-11) % Eos % (Auto) 0.2 (0-4) % Baso % (Auto) 0.4 (0-2) % Lymph # (Auto) 2.6 (1.2-4.9) X10*3/uL Clark # (Auto) 1.1 (0.1-1.2) X10*3/uL Eos # (Auto) 0.0 (0.0-0.4) X10*3/uL Baso # (Auto) 0.1 (0.0-0.2) X10*3/uL Abs Immat Gran (auto) 0.07 H (0.00-0.03) X10*3/uL Absolute Neuts (auto) 8.8 H (2.0-8.3) x10*3/uL Absolute Nucleated RBC 0.000 (0.0-0.012) X10*3/uL Nucleated RBC % (auto) 0.0 (0.0-0.2) /100WBC PT 12.8 (11.1-13.3) SEC INR 1.1 (0.9-1.1) Sodium 140 (135-145) mmol/L Potassium 3.5 (3.3-5.1) mmol/L Chloride 106 (96-108) mmol/L Carbon Dioxide 22 (22-29) mmol/L Anion Gap 16 (12-20) BUN 23 H (9-16) mg/dL Creatinine 1.18 (0.5-1.4) mg/dL Estim Creat Clear Calc 92.7 Estimated GFR > 60 Random Glucose 86 (60-115) mg/dL Calcium 9.5 (8.4-10.2) mg/dL Magnesium 2.2 (1.6-2.6) mg/dL Total Bilirubin 0.8 (0.0-1.0) mg/dL Direct Bilirubin 0.3 (0.0-0.5) mg/dL AST 40 H (5-37) U/L ALT 30 (0-40) U/L Alkaline Phosphatase 57 (39-117) U/L Total Creatine Kinase 374 H (38-174) U/L Troponin I High Sens < 2.7 (<3.5-35.0) ng/L C-Reactive Protein 0.71 H (< or = 0.50) mg/dL Total Protein 8.4 H (6.5-8.0) g/dL Albumin 4.9 (3.5-5.0) g/dL Lipase 12 (8-78) U/L Ethyl Alcohol < 10 mg/dL Influenza Type A (PCR) NEGATIVE (Negative) Influenza Type B (PCR) NEGATIVE (Negative) RSV RNA Qual (PCR) NEGATIVE (Negative) SARS-CoV-2 RNA (RT-PCR) NEGATIVE (Negative) Independent Interpretation I performed an independent interpretation of an: EKG Interpretation: EKG at 08/05/2007 shows normal sinus rhythm 79 beats per minute. It is a normal EKG. Critical Care Time Critical Care Time Critical Care Time: Yes Total Critical Care Time: 35 Attestation: The patient was critically ill with a high probability of imminent or life-threatening deterioration. Patient was exhibiting significant acute mental status changes with bizarre behavior requiring sedation. I spent greater than 30 minutes of discontinuous time evaluating the patient, delivering critical care at the bedside, discussing evaluating data with consultants. Critical care time does not include time spent performing separately billable procedures or teaching. Time spent performing critical care with 35 minutes. Discharge Plan Discharge Clinical Impression: Altered mental status, Drug abuse Patient Disposition: Home, Self-Care Additional Instructions: Please do your best to avoid using any drugs, especially any hallucinogens. You were seen by cost recovery technician who has recommended that you follow-up with them on Thursday. You may follow-up with the [facility]. This is located at [address] [place] [address], [address]. The phone number is [phone]. You may either call the office on Thursday or simply go directly to the office on Thursday. The office is open from 9AM-5PM. Please also plan on following up with your regular doctor. Return to the emergency room if significantly worse. Prescriptions: No Action azithromycin 500 mg tablet 500 mg PO DAILY 5 Days Qty: 5 0RF cefuroxime axetil 500 mg tablet 500 mg PO BID Qty: 10 0RF nicotine 14 mg/24 hr Patch 24 Hour 14 mg transdermal DAILY Qty: 30 0RF benzonatate 100 mg Capsule 100 mg PO TID PRN (Reason: Cough) Qty: 21 0RF prednisone 20 mg tablet 20 mg PO DAILY Qty: 6 0RF Referrals: Breann Gambino MD [Primary Care Provider] - (Substance use disorder) Interventions: ED Discharge Assessment Last Done: 07/18/23 17:44
--- NOTE | 2023-07-18 07:42 | ECG_ITS ---
Test Reason : WEAKNESS Blood Pressure : / mmHG Vent. Rate : 079 BPM Atrial Rate : 079 BPM P-R Int : 152 ms QRS Dur : 072 ms QT Int : 374 ms P-R-T Axes : 028 065 055 degrees QTc Int : 428 ms Normal sinus rhythm Normal ECG No previous ECGs available Referred By: Joaquin Whitten Electronically Signed By:Luis Ladd
[2023-07-18 08:03] LABS: MANUAL DIFF FLAG NO
[2023-07-18 08:05] LABS: Basophils Absolute Auto 0.1 X10*3/uL (0.0-0.2); Basophils Percent Auto 0.4 % (0-2); Eosinophils Percent Auto 0.2 % (0-4); Hematocrit 41.9 % (42.0-52.0); Hemoglobin 14.1 g/dl (14.0-18.0); Imm Gran Abs Auto 0.07 X10*3/uL (0.00-0.03); Imm Gran Pct Auto 0.6 % (0.0-0.4); Lymphocytes Absolute Auto 2.6 X10*3/uL (1.2-4.9); Lymphocytes Percent Auto 20.3 % (20-40); Mean Corpuscular HGB Conc 33.7 g/dl (31.0-36.0); Mean Corpuscular Hemoglobin 30.3 pg (27.0-33.0); Mean Corpuscular Volume 90.1 fL (80.0-98.0); Monocytes Absolute Auto 1.1 X10*3/uL (0.1-1.2); Monocytes Percent Auto 8.8 % (2-11); Neutrophils Absolute Auto 8.8 x10*3/uL (2.0-8.3); Neutrophils Percent Auto 69.7 % (45-73); Platelet Count 316 X10*3/uL (160-400); Red Blood Count 4.65 X10*6/uL (4.60-5.80); Red Cell Distribution Width 12.7 % (11.0-16.0); White Blood Count 12.6 X10*3/uL (4.8-10.8)
[2023-07-18 08:11] LABS: INTERNATIONAL NORM RATIO 1.1 (0.9-1.1); Prothrombin Time 12.8 SEC (11.1-13.3)
[2023-07-18] MEDS: 0.9 % Sodium Chloride 1,000 ML 999 ML IV ×2 (08:20→10:01)
[2023-07-18 08:23] LABS: Alanine Aminotransferase 30 U/L (0-40); Albumin Level 4.9 g/dL (3.5-5.0); Alkaline Phosphatase 57 U/L (39-117); Anion Gap 16 (12-20); Aspartate Amino Transferase 40 U/L (5-37); Bilirubin Direct 0.3 mg/dL (0.0-0.5); Bilirubin Total 0.8 mg/dL (0.0-1.0); Blood Urea Nitrogen 23 mg/dL (9-16); C Reactive Protein 0.71 mg/dL (< or = 0.50); Calcium 9.5 mg/dL (8.4-10.2); Carbon Dioxide 22 mmol/L (22-29); Chloride 106 mmol/L (96-108); Creatinine Clr Calc Pharmacy 92.7; Estimated Glomerular Filt Rate > 60; Glucose Random 86 mg/dL (60-115); Lipase 12 U/L (8-78); Magnesium 2.2 mg/dL (1.6-2.6); Potassium 3.5 mmol/L (3.3-5.1); Sodium 140 mmol/L (135-145); Total Protein 8.4 g/dL (6.5-8.0)
[2023-07-18 08:24] LABS: Ethanol < 10 mg/dL
[2023-07-18 08:30] LABS: Troponin-I High Sensitivity < 2.7 ng/L (<3.5-35.0)
[2023-07-18 08:45] LABS: Influenza A PCR NEGATIVE (Negative); Influenza B PCR NEGATIVE (Negative); Resp Syncy Virus RNA Qual PCR NEGATIVE (Negative); SARS COV2 PCR INHOUSE NEGATIVE (Negative)
--- NOTE | 2023-07-18 09:26 | MHC.EDTECH ---
BELONGINGS TO MINESH WITH SUPERVISOR LIME CLAUDIA @ THIS TIME
[2023-07-18] MEDS: Ketorolac Tromethamine 15 MG/ML VIAL 10 MG IVPUSH (09:34)
[2023-07-18] MEDS: Acetaminophen 325 MG TABLET 975 MG PO (09:35)
[2023-07-18] MEDS: droPERidol 5 MG/2 ML VIAL 2.5 MG IVPUSH ×2 (09:35→09:59)
[2023-07-18] MEDS: LORazepam 2 MG/ML VIAL IVPUSH (09:58)
--- NOTE | 2023-07-18 10:07 | PC.NURSE ---
at 0920 this rn entered the pt's room with apap and toradol and the pt was laying quietly and awake, i explained the meds and the reason for them and the pt ripped out his IV without saying a word and rapidly and aggressively came after this rn and followed this rn from room 20 over to the [facility] hallway until other staff arrived and then he calmed, pt states that he's not sure why he did that and apologized, medicated with droperidol and moved to room 21 and a sitter is now in place, pt admits to using michelle dust and cocaine shortly before arrival. security at bedside and pt appeared calm. shortly after getting the first dose of droperidol, the pt stood on the bed and yelled I am god , had a blank stare and fixated on the sitter, security to bedside and pt was redirected and layed back on his bed, 2nd dose of droperidol given along with ativan and moments later the pt closed his eyes and appeared much more calm, sr on monitor, skin wpd, spo2 97-99%, now resting with eyes closed resp even and unlabored
[2023-07-18 11:51] VITALS: BP 122/76; PULSE 98; RESP 18; O2SAT 98
[2023-07-18 14:27] VITALS: BP 105/58; PULSE 80; RESP 19; O2SAT 98
[2023-07-18 14:29] VITALS: BP 105/58; PULSE 80; RESP 18; O2SAT 96
--- NOTE | 2023-07-18 15:43 | MHC.RECOVRN ---
Met with pt in ED21 after request to speak with Recovery Team. Pt had presented to the ED c/o bilateral kidney pain and PCP use. Pt laying in bed, awake, alert, difficult to engage in conversation, labile. Pt reports PCP use, INH, approx once per week, not a lot. Pt states use only when I go with my . Pt unable to elaborate. Pt also reports cocaine use, IN, $20 daily, last use 2 days ago. At times during conversation pt begins crying and yells I just want my kids. Pt unable to elaborate on location of children/custody status. Pt help seeking and tearful. Pt reports recent opioid overdose, unclear on whether it was intentional or unintentional and whether pt used opioids purposely or if it was in another substance. Educated pt on drug supply/presence of fentanyl in other substances. Discussed harm reduction and provided pt with fentanyl test strips. Pt denies current SI/HI. Discussed outpatient support options, including the [facility] and treatment for StUD. Pt interested in presenting as a walk in on Thursday. Pt provided with written resources including [facility], college sports coach, IOP, counseling. Also provided with t/w contact information. Pt denies questions or concerns for t/w, encouraged to reach out if needed. Plan to walk in to [facility] on Thursday. Provider and RN aware.
[2023-07-18 17:13] VITALS: BP 134/78; PULSE 92; RESP 18; O2SAT 99
== END 2023-07-18 17:20 | disposition home or self-care (01) ==
PROVIDERS: Emergency Provider Emergency Medicine; PCP Student in an Organized Health Care Education/Training Program
DX: F19.10 Other psychoactive substance abuse, uncomplicated (principal); R45.1 Restlessness and agitation; F17.210 Nicotine dependence, cigarettes, uncomplicated; Z79.899 Other long term (current) drug therapy; Z20.822 Contact with and (suspected) exposure to COVID-19; Z20.828 Contact with and (suspected) exposure to other viral communicable diseases
CPT/HCPCS: 0241U; 36415; 71046; 80048; 80076; 80307; 82550; 83690; 83735; 84484; 85025; 85610; 86140; 93005; 96361; 96374; 96375; 96376; 99285; J1790; J1885; J2060

== ENCOUNTER → 2023-07-18 07:42 | Outpatient (BNV) | payer MEDICAID, SELFPAY | PROVIDERS: Emergency Provider Emergency Medicine; PCP Student in an Organized Health Care Education/Training Program; Visit Provider Internal Medicine Cardiovascular Disease | DX: R53.1 Weakness (principal) | CPT/HCPCS: 93010 ==

== ENCOUNTER 2023-07-20 07:15 | Emergency (ER) | payer MEDICAID, SELFPAY ==
[2023-07-20 07:22] VITALS: PULSE 92; O2SAT 98
--- NOTE | 2023-07-20 07:22 | PC.NURSE ---
PT PRESENTS WITH EMS DENIES SI OR HI ADMITS TO DRUG USE EARLIER, HE IS COOPERATIVE ON ARRIVAL,HE STATES NO PHYSICAL COMPLAINTS,HE WAS NOT SENT ON A SEC 12, HE WAS GIVEN A HOSPITAL GOWN AND SOCKS HE WAS SENT TO EXTERNAL TRIAGE
--- NOTE | 2023-07-20 08:03 | PC.NURSE ---
patient brought to waiting room by ems. upon arrival pacing, going in and out of bathroom. security aware of pain and familiar with his behavior. patient called into triage room at this time but not seen in waiting room.
== END 2023-07-20 09:29 | disposition left against medical advice (07) ==
PROVIDERS: Emergency Provider Emergency Medicine
DX: F91.9 Conduct disorder, unspecified (principal)

== ENCOUNTER 2023-07-20 12:49 | Emergency (ER) | payer MEDICAID, SELFPAY ==
[2023-07-20 12:56] VITALS: PULSE 91
[2023-07-20 13:23] VITALS: BP 163/104; PULSE 115; RESP 20; O2SAT 97; BMI 30.4
--- NOTE | 2023-07-20 13:24 | ED.GENADULT ---
HPI - General Adult General Chief complaint: ETOH/Substance Use Stated complaint: ANXIETY/WORRIES,SEEN RECENTLY PER EMS Related Data Previous Rx's Medication Instructions Recorded azithromycin 500 mg tablet 500 mg PO DAILY 5 days #5 tabs 06/06/23 benzonatate 100 mg capsule 100 mg PO TID PRN Cough #21 caps 06/06/23 cefuroxime axetil 500 mg tablet 500 mg PO BID #10 tabs 06/06/23 nicotine 14 mg/24 hr daily 14 mg transdermal DAILY #30 ea 06/06/23 transdermal patch prednisone 20 mg tablet 20 mg PO DAILY #6 tabs 06/06/23 Allergies Allergy/AdvReac Type Severity Reaction Status Date / Time No Known Allergies Allergy Verified 07/18/23 07:27 [facility] Social History Social History Household Members: Family Housing: House Do you presently have visiting nurse or other home services: No Patient Tobacco Use Status: Current everyday Tobacco user Tobacco use type: Cigarette Second Hand Smoke Exposure: Yes Substance Use Type: Crack/Cocaine Advance Directives: No Advance Directives Information Provided: No service: No Physical Exam ED Vital Signs: BMI result Body Mass Index 30.4 Course Course Course Narrative: This is an RME: Additional HPI, ROS, PE not included below will be deferred to primary provider. This is a [id number] presenting to the emergency department with a complaint of increased aggitation and anxiety. patient unable to report why he is currently here however endorsing auditory hallucinations as he is claiming that security officers are stating that [employer] [employer] are losers he has been agitated in the emergency room waiting room, security officers next the patient attempting to diffuse situation. Reevaluation(s) Reevaluation #1: pt eloped prior to completing treatment. Discharge Plan Discharge Clinical Impression: Agitation Patient Disposition: Left W/O Completing Treatment Prescriptions: No Action azithromycin 500 mg tablet 500 mg PO DAILY 5 Days Qty: 5 0RF cefuroxime axetil 500 mg tablet 500 mg PO BID Qty: 10 0RF nicotine 14 mg/24 hr Patch 24 Hour 14 mg transdermal DAILY Qty: 30 0RF benzonatate 100 mg Capsule 100 mg PO TID PRN (Reason: Cough) Qty: 21 0RF prednisone 20 mg tablet 20 mg PO DAILY Qty: 6 0RF Discharge Date/Time: 07/20/23 20:19
--- NOTE | 2023-07-20 13:55 | MHC.CARE ---
Family called regarding pt. They state pt has been increasingly depressed and substance use has been concerning. They are trying to pursue a 35. Pt's family ask that the care team meet with pt to provide substance use resources as pt is really struggling and family does not know how to help him.
--- NOTE | 2023-07-30 07:33 | PC.NURSE ---
the following vitals were taken and documented on the medication restraint flow sheets on 07/18/23 and added to this chart on 07/30/23 0950 p 100 rr 18 bp 140/76 spo2 98 1005 104 17 122/79 98 1020 92 17 122/77 98 1035 96 17 111/58 98 1014 104 17 122/79 98 1029 92 17 122/77 98 1044 95 17 108/56 98 1059 94 18 112/66 98
== END 2023-07-20 20:19 | disposition left against medical advice (07) ==
PROVIDERS: Emergency Provider Emergency Medicine
DX: R45.1 Restlessness and agitation (principal)
CPT/HCPCS: 99281